=== PATIENT | female | born 1960 | race Two or more races ===

== ENCOUNTER 2017-10-30 09:24 | Outpatient (CLI) | payer OTHER | END 2017-10-30 15:54 | disposition home or self-care (01) | LOC: MAMO-SONO 09:24 | DX: Z12.31 Encounter for screening mammogram for malignant neoplasm of breast (principal); N64.4 Mastodynia; N60.11 Diffuse cystic mastopathy of right breast; N60.12 Diffuse cystic mastopathy of left breast ==

== ENCOUNTER 2018-11-26 10:32 | Outpatient (CLI) | payer OTHER | END 2018-11-26 10:34 | disposition home or self-care (01) | LOC: MAMO-SONO 10:32 | DX: N60.12 Diffuse cystic mastopathy of left breast (principal); N60.11 Diffuse cystic mastopathy of right breast; N64.4 Mastodynia; N76.4 Abscess of vulva; Z12.31 Encounter for screening mammogram for malignant neoplasm of breast ==

== ENCOUNTER 2019-01-16 12:16 | Outpatient (CLI) | payer OTHER | END 2019-01-16 14:56 | disposition home or self-care (01) | LOC: SONOGRAMA 12:16 | DX: N60.11 Diffuse cystic mastopathy of right breast (principal); N60.12 Diffuse cystic mastopathy of left breast ==

== ENCOUNTER 2019-07-16 10:21 | Outpatient (CLI) | payer OTHER | END 2019-07-16 11:00 | disposition home or self-care (01) | LOC: SONOGRAMA 10:21 | DX: N60.11 Diffuse cystic mastopathy of right breast (principal); N60.12 Diffuse cystic mastopathy of left breast ==

== ENCOUNTER → 2020-02-08 | Outpatient (CLI) | payer OTHER | END | disposition home or self-care (01) | LOC: MAMO-SONO 10:15 | PROVIDERS: ATTEND Surgery | DX: Z12.31 Encounter for screening mammogram for malignant neoplasm of breast (principal); N60.11 Diffuse cystic mastopathy of right breast; N60.12 Diffuse cystic mastopathy of left breast ==

== ENCOUNTER → 2020-10-14 | Outpatient (CLI) | payer OTHER | END | disposition home or self-care (01) | LOC: SONOGRAMA 11:43 | PROVIDERS: ATTEND Obstetrics & Gynecology Gynecology | DX: N95.0 Postmenopausal bleeding (principal) ==

== ENCOUNTER 2021-01-11 09:46 | Outpatient (CLI) | payer OTHER ==
[2021-01-25] MEDS ORDERED: SIMVASTAT PO (14:28)
[2021-01-30] MEDS ORDERED: IBU600 MG PO (11:55)
== END 2021-01-31 09:46 | disposition home or self-care (01) ==
LOC: RAD 09:46
PROVIDERS: ATTEND Obstetrics & Gynecology Gynecology
DX: I10 Essential (primary) hypertension (principal)

== ENCOUNTER 2021-01-30 07:10 | Day surgery (SDC) | payer OTHER ==
[~2021-01-30 07:10] MED LIST: SIMVASTAT PO
[2021-01-30] MEDS ORDERED: IBU600 MG PO (11:55)
== END 2021-01-30 16:30 | disposition home or self-care (01) ==
LOC: CIR.AMB 07:10
PROVIDERS: ATTEND Obstetrics & Gynecology Gynecology
DX: N84.0 Polyp of corpus uteri (principal); Z20.822 Contact with and (suspected) exposure to COVID-19

== ENCOUNTER → 2021-03-23 | Outpatient (CLI) | payer OTHER ==
[~2021-03-23] MED LIST changes: +IBU600 MG PO
== END | disposition home or self-care (01) ==
LOC: MAMO-SONO 07:47
PROVIDERS: ATTEND Surgery
DX: N60.11 Diffuse cystic mastopathy of right breast (principal); N60.12 Diffuse cystic mastopathy of left breast; Z12.31 Encounter for screening mammogram for malignant neoplasm of breast

== ENCOUNTER → 2023-07-18 | Outpatient (CLI) | payer OTHER | END | disposition home or self-care (01) | LOC: MAMO-SONO 11:26 | PROVIDERS: ATTEND Obstetrics & Gynecology Gynecology | DX: N60.11 Diffuse cystic mastopathy of right breast (principal); N60.12 Diffuse cystic mastopathy of left breast ==

== ENCOUNTER 2023-08-16 09:56 | Outpatient (CLI) | payer OTHER | END 2023-08-16 10:19 | disposition home or self-care (01) | LOC: SONOGRAMA 09:56 | PROVIDERS: ATTEND Obstetrics & Gynecology Gynecology | DX: N02.9 Recurrent and persistent hematuria with unspecified morphologic changes (principal) ==

== ENCOUNTER → 2024-07-31 | Outpatient (CLI) | payer OTHER | END | disposition home or self-care (01) | LOC: MAMO-SONO 09:33 | PROVIDERS: ATTEND Obstetrics & Gynecology Gynecology | DX: N60.11 Diffuse cystic mastopathy of right breast (principal); N60.12 Diffuse cystic mastopathy of left breast; Z12.31 Encounter for screening mammogram for malignant neoplasm of breast ==